=== PATIENT | female | born 1985 | race Hispanic/Latino ===

== ENCOUNTER 2021-04-13 14:10 | Emergency (ER) | payer BC, SELFPAY ==
--- NOTE | 2021-04-13 15:27 | RAD REPORT ---
EXAM DESCRIPTION: RAD - Forearm Right - 04/13/2021 3:07 pm CLINICAL HISTORY: struck by softball to right forearm;Pain COMPARISON: <Comparisons> FINDINGS: No acute fracture. No malalignment. No significant focal degenerative changes. IMPRESSION: No acute osseous abnormality involving the right forearm.
--- NOTE | 2021-04-13 15:31 | ER ---
Nurse's Notes [facility] Name: Caron Morales Age: 36 yrs Sex: Female : 1985 Arrival Date: 04/13/2021 Time: 14:11 Bed 18 Private MD: Diagnosis: Contusion of right forearm Presentation: 04/13 14:15 Chief complaint: Patient states: injured right wrist while playing softball. aa5 Coronavirus screen: At this time, the client does not indicate any symptoms associated with coronavirus-19. Ebola Screen: No symptoms or risks identified at this time. Initial Sepsis Screen: Does the patient meet any 2 criteria? HR > 90 bpm. Does the patient have a suspected source of infection? No. Patient's initial sepsis screen is negative. Risk Assessment: Do you want to hurt yourself or someone else? Patient reports no desire to harm self or others. Onset of symptoms was April 13, 2021. 14:15 Method Of Arrival: Ambulatory aa5 14:15 Acuity: [id number] 4 aa5 Triage Assessment: 15:17 General: Appears in no apparent distress. Behavior is calm, cooperative. sl2 Historical: - Allergies: 14:15 No Known Allergies; aa5 - PMHx: 14:15 None; aa5 - PSHx: 14:15 cyst removed from coccyx; aa5 - Immunization history:: Client reports receiving the 2nd dose of the Covid vaccine. - Social history:: Smoking status: Patient denies any tobacco usage or history of. Screenin:22 Abuse screen: Denies threats or abuse. Nutritional screening: No deficits noted. sl2 Tuberculosis screening: No symptoms or risk factors identified. Fall Risk None identified. Assessment: 14:18 Pain: Complains of pain in lower right forearm Pain currently is 7 out of 10 on a pain sl2 scale. Quality of pain is described as aching, throbbing, Pain began suddenly, Alleviated by cold application, Aggravated by increased activity, palpation Noted to be grimacing. Neuro: No deficits noted. Cardiovascular: No deficits noted. Respiratory: No deficits noted. GI: No deficits noted. : No deficits noted. EENT: No deficits noted. Derm: No deficits noted. Musculoskeletal: Reports right lower forearm pain. Injury Description: swelling. 14:54 Reassessment: Portable X-ray of right arm in progress at bedside. sl2 Vital Signs: 14:15 BP 108 / 75; Pulse 110; Resp 18 S; Temp 98.2(TE); Pulse Ox 100% on R/A; Weight 100.7 kg aa5 (R); Height 5 ft. 0 in. (152.40 cm) (R); 14:20 BP 104 / 78; Pulse 105; Resp 20; Temp 98.4; Pulse Ox 100% on R/A; sl2 14:15 Body Mass Index 43.36 (100.70 kg, 152.40 cm) aa5 ED Course: 14:11 Patient arrived in ED. as 14:15 Arm band placed on. aa5 14:16 Triage completed. aa5 14:17 Brittaney Castorena, FRANSISCA is Primary Nurse. sl2 14:17 Elvis Kathleen PA is PHCP. cp 14:17 Jet Jackson MD is Attending Physician. cp 14:22 Patient has correct armband on for positive identification. sl2 14:22 Patient did not have IV access during this emergency room visit. sl2 15:07 XRAY Forearm RIGHT In Process Unspecified. EDMS 15:20 No apparent distress. Awaiting radiology results. sl2 Administered Medications: 14:29 Drug: Ibuprofen 800 mg Route: PO; sl2 15:49 Follow up: Response: No adverse reaction; Pain is decreased sl2 14:29 Drug: Hydrocodone-Acetaminophen (7.5 mg-325 mg) 1 tabs Route: PO; sl2 15:48 Follow up: Response: No adverse reaction; Pain is decreased sl2 Outcome: 15:31 Discharge ordered by MD. cp 16:20 Patient left the ED. iw Signatures: Dispatcher [employer] EDMS Suzan Ernst Irene, RN RN iw Nahed Mitchell RN RN aa5 Elvis Kathleen PA PA cp Brittaney Castorena RN RN sl2 Corrections: (The following items were deleted from the chart) 14:58 02:20 BP 104 / 78; Pulse 105bpm; Resp 20bpm; Pulse Ox 100%; Temp 98.4F; sl2 sl2
[2021-04-13] MEDS ORDERED: IBUPROFEN 400 MG TAB ONE (15:32)
[2021-04-13] MEDS ORDERED: HYDROCODONE/APAP 7.5/325 MG TAB ONE (15:32)
--- NOTE | 2021-04-13 15:32 | EDPHYS ---
Physician Documentation [facility] Name: Caron Morales Age: 36 yrs Sex: Female : 1985 Arrival Date: 04/13/2021 Time: 14:11 Bed 18 Private MD: ED Physician Jet Jackson HPI: 04/13 14:35 This 36 yrs old Female presents to ER via Ambulatory with complaints of Wrist cp Injury. 14:35 The patient or guardian complains of contusion, injury. cp 14:35 The complaints affect the dorsal aspect of right forearm. Context: The problem was cp sustained at a sports field or court, resulted from a direct blow, by softball. Onset: The symptoms/episode began/occurred just prior to arrival. Treatment prior to arrival includes: icing the affected extremity. Modifying factors: the symptoms are aggravated by movement. Associated signs and symptoms: Pertinent positives: numbness, of the right hand. Historical: - Allergies: 14:15 No Known Allergies; aa5 - PMHx: 14:15 None; aa5 - PSHx: 14:15 cyst removed from coccyx; aa5 - Immunization history:: Client reports receiving the 2nd dose of the Covid vaccine. - Social history:: Smoking status: Patient denies any tobacco usage or history of. ROS: 14:45 MS/extremity: Positive for injury or acute deformity, contusion, pain, paresthesias, cp swelling, tenderness, of the right forearm. 14:45 Constitutional: Negative for body aches, chills, fever. cp 14:45 Respiratory: Negative for cough, shortness of breath, wheezing. 14:45 Abdomen/GI: Negative for abdominal pain. 14:45 All other systems are negative. Exam: 14:50 Constitutional: The patient appears in no acute distress, alert, awake, well developed, cp well nourished, uncomfortable. 14:50 Head/Face: Normocephalic, atraumatic. cp 14:50 Chest/axilla: Inspection: normal. 14:50 Cardiovascular: Rate: tachycardic. 14:50 Respiratory: the patient does not display signs of respiratory distress, Respirations: normal, no use of accessory muscles, no retractions. 14:50 Abdomen/GI: Exam negative for discomfort, distension, guarding, Inspection: abdomen appears normal. 14:50 Musculoskeletal/extremity: Extremities: grossly normal except: noted in the right forearm: contusion, ecchymosis, pain, swelling, tenderness, ROM: limited passive range of motion due to pain, in the right wrist, Pulses: noted to be 2+ in the right radial artery, the right hand decreased sensation. Vital Signs: 14:15 BP 108 / 75; Pulse 110; Resp 18 S; Temp 98.2(TE); Pulse Ox 100% on R/A; Weight 100.7 kg aa5 (R); Height 5 ft. 0 in. (152.40 cm) (R); 14:20 BP 104 / 78; Pulse 105; Resp 20; Temp 98.4; Pulse Ox 100% on R/A; sl2 14:15 Body Mass Index 43.36 (100.70 kg, 152.40 cm) aa5 Procedures: 15:35 Splinting: Splint applied to right arm using sling, applied by nurse. Examined by me, cp post splint application: neurovascular intact, Patient tolerated well. MDM: 14:23 Patient medically screened. cp 15:00 Differential diagnosis: open fracture, closed fracture, contusion. cp 15:30 Data reviewed: vital signs, nurses notes, radiologic studies, plain films. cp 15:30 Test interpretation: by ED physician or midlevel provider: plain radiologic studies. cp Counseling: I had a detailed discussion with the patient and/or guardian regarding: the historical points, exam findings, and any diagnostic results supporting the discharge/admit diagnosis, radiology results, to return to the emergency department if symptoms worsen or persist or if there are any questions or concerns that arise at home. Response to treatment: the patient's symptoms have markedly improved after treatment, and as a result, I will discharge patient. 04/13 14:26 Order name: XRAY Forearm RIGHT; Complete Time: 15:30 cp 04/13 15:30 Interpretation: Reviewed. cp 04/13 15:20 Order name: Ice pack; Complete Time: 15:48 cp 04/13 15:20 Order name: Sling; Complete Time: 15:48 cp Administered Medications: 14:29 Drug: Ibuprofen 800 mg Route: PO; sl2 15:49 Follow up: Response: No adverse reaction; Pain is decreased sl2 14:29 Drug: Hydrocodone-Acetaminophen (7.5 mg-325 mg) 1 tabs Route: PO; sl2 15:48 Follow up: Response: No adverse reaction; Pain is decreased sl2 Disposition: 15:45 Chart complete. cp Disposition Summary: 04/13/21 15:31 Discharge Ordered Location: Home cp Problem: new cp Symptoms: have improved cp Condition: Stable cp Diagnosis - Contusion of right forearm cp Followup: cp - With: Private Physician - When: 1 - 2 days - Reason: Worsening of condition Discharge Instructions: - Discharge Summary Sheet cp - Contusion cp Forms: - Medication Reconciliation Form cp - Thank You Letter cp - Antibiotic Education cp - Prescription Opioid Use cp - Work release form eb Prescriptions: - Naprosyn 500 mg Oral Tablet - take 1 tablet by ORAL route 2 times per day take with food; 30 tablet; Refills: cp 0, Product Selection Permitted - Tramadol 50 mg Oral Tablet - take 1 tablet by ORAL route every 8 hours as needed; 12 tablet; Refills: 0, cp Product Selection Permitted Addendum: 04/22/2021 22:53 Co-signature as Attending Physician, Jet Jackson MD. m a2 Signatures: Dispatcher [employer] Nahed Romero, RN RN aa5 Elvis Kathleen PA PA cp Jet Jackson MD MD ma2 Brittaney Castorena RN RN sl2
[2021-04-13 16:33] VITALS: O2SAT 100
[2021-04-13 16:35] VITALS: BP 104/78; TEMP 98.4
== END 2021-04-13 16:20 | disposition home or self-care (01) ==
LOC: ER 14:10
DX: S50.11XA Contusion of right forearm, initial encounter (principal); W21.07XA Struck by softball, initial encounter; Y93.64 Activity, baseball; Y92.39 Other specified sports and athletic area as the place of occurrence of the external cause; Y99.8 Other external cause status
CPT/HCPCS: 99283